=== PATIENT | male | born 1945 | race Caucasian/White ===

== ENCOUNTER 2017-06-22 20:44 | Emergency (ER) | payer OTHER ==
[2017-06-22 21:02] LABS: BASOPHIL (%) 0.9 % (0-1); BASOPHIL COUNT 0.1 K/uL (0-0.1); EOSINOPHIL (%) 1.6 % (0-5); EOSINOPHIL COUNT 0.1 K/uL (0-0.3); HEMATOCRIT 35.3 % (38.0-50.0); HEMOGLOBIN 11.7 G/DL (12.5-16.6); IMMATURE GRANULOCYTE (%) 0.7 % (0.0-0.7); LYMPHOCYTE (%) 25.3 % (15-42); LYMPHOCYTE COUNT 1.4 K/uL (1.0-2.8); MCH 30.4 PG (29.0-34.0); MCHC 33.1 G/DL (30.0-36.0); MCV 91.7 FL (86-99); MONOCYTE (%) 3.5 % (3-12); MONOCYTE COUNT 0.2 K/uL (0-0.8); NEUTROPHIL COUNT 3.9 K/uL (1.8-6.4); PLATELET COUNT 235 K/uL (156-360); RBC DIS.WIDTH-CV 12.4 % (11.8-14.6); RBC DIS.WIDTH-SD 41.1 % (39-53); RED BLOOD COUNT 3.85 M/uL (4.00-5.50); WHITE BLOOD COUNT 5.7 K/uL (4.1-10.2)
[2017-06-22 21:12] LABS: AMYLASE 68 IU/L (1-118); CHLORIDE 104 mEq/L (99-109); POTASSIUM 4.6 mEq/L (3.7-5.4); SODIUM 138 mEq/L (136-147)
[2017-06-22 21:14] LABS: GLUCOSE 259 mg/dL (70-99)
[2017-06-22 21:17] LABS: SERUM ETHYL ALCOHOL < 10 mg/dL
[2017-06-22 21:19] LABS: UREA NITROGEN (BUN) 40 mg/dL (9-23)
[2017-06-22 21:21] LABS: LIPASE 70 U/L (1.0-51.0)
[2017-06-22 21:22] LABS: GFR ESTIMATE (CALCULATED) 35 mL/min/ (58.99-99999)
== END 2017-06-22 23:34 | disposition short-term general hospital (02) ==
LOC: TRA 20:44
PROVIDERS: Emergency Medicine
DX: S36.113A Laceration of liver, unspecified degree, initial encounter (principal); S36.112A Contusion of liver, initial encounter; S36.039A Unspecified laceration of spleen, initial encounter; S22.43XA Multiple fractures of ribs, bilateral, initial encounter for closed fracture; S00.01XA Abrasion of scalp, initial encounter; S50.811A Abrasion of right forearm, initial encounter; S80.212A Abrasion, left knee, initial encounter; S80.211A Abrasion, right knee, initial encounter; S70.312A Abrasion, left thigh, initial encounter; S80.01XA Contusion of right knee, initial encounter; S80.02XA Contusion of left knee, initial encounter; E11.9 Type 2 diabetes mellitus without complications; V43.52XA Car driver injured in collision with other type car in traffic accident, initial encounter; Y92.410 Unspecified street and highway as the place of occurrence of the external cause; Z79.01 Long term (current) use of anticoagulants; Z79.4 Long term (current) use of insulin; Z86.73 Personal history of transient ischemic attack (TIA), and cerebral infarction without residual deficits
CPT/HCPCS: 70450; 71260; 72125; 73560; 73590; 74177; 80048; 81003; 82150; 83690; 85025; 86850; 86900; 86901; 99281; 99285; G0480; J2270